=== PATIENT | female | born 1995 | race African-American/Black ===

== ENCOUNTER 2017-01-08 17:03 | Inpatient (IN) ==
[2017-01-08] MEDS ORDERED: ONDANSETRON 4 MG/2 ML VIAL IV PRN (17:31)
[2017-01-08] MEDS ORDERED: BUTORPHANOL 2 MG/ML VIAL IV PRN (17:31)
[2017-01-08] MEDS ORDERED: MEPERIDINE 50 MG/1 ML VIAL IV PRN (17:31)
[2017-01-08] MEDS: LACTATED RINGERS 1,000 ML IV SCH ×3 (17:33→21:11)
[2017-01-08 18:00] LABS: Basophils % 0.2 % (0.0-0.8); Eosinophils # 0.1 10*3/uL (0.0-0.87); Eosinophils % 0.9 % (0.00-10.9); Hematocrit 30.6 VOL% (35.7-47.0); Hemoglobin 10.4 GM/DL (12.0-16.0); Immature Granulocytes % 1.1 %; Immature Granulocytes Absolute 0.13 #; Lymphocytes % 16.6 % (21.3-54.2); Mean Corpuscular Hemoglobin 28 PG (27-34); Mean Corpuscular Volume 82.7 FL (87-102); Mean Platelet Volume 11.3 FL (9.6-12.0); Monocytes # 1.3 10*3/uL (0.11-0.8); Monocytes % 10.7 % (1.7-12.7); NRBC # 0.02 10*3/uL; Neutrophils # 8.3 10*3/uL (1.4-7.4); Neutrophils % 70.5 % (38.7-73.9); Platelet Count 282 T/CUMM (130-400); White Blood Count 11.8 T/CUMM (4-12)
[2017-01-08] MEDS ORDERED: OXYTOCIN/LR 20 UNIT/1,000 ML BAG IV SCH (18:00)
[2017-01-08] MEDS ORDERED: CITRIC ACID/SODIUM CITRATE 30 ML UDCUP PO ONE (19:55)
[2017-01-08] MEDS ORDERED: ePHEDrine 50 MG/ML AMP IV PRN (19:55)
[2017-01-08] MEDS ORDERED: FAMOTIDINE 20 MG/2 ML VIAL IV ONE (19:55)
[2017-01-08] MEDS ORDERED: fentaNYL 2 MCG/ROPIV 0.2% EPID 150 ML EPIDURAL SCH (19:56)
[2017-01-08 23:03] LABS: Apearance,Urine CLEAR (Clear); Bilirubin,Urine Negative (Negative); Blood, Urine Negative (Negative); Glucose,Urine (UA) Negative (Negative); Ketones,Urine 5 mg/dL (Negative); Mucus,Urine Occasional /LPF (Occasional); Nitrite,Urine Negative (Negative); Protein,Urine Negative; RBC,Urine <1 /HPF (0-4); Squamous Epithelial Cell,Urine Occasional /HPF (0-10); Urine Color Straw (Yellow); Urine Specific Gravity 1.006 (1.001-1.035); Urine Urobilinogen < 2.0 EU/DL (0.2-1.0); WBC,Urine <1 /HPF (0-6)
--- NOTE | 2017-01-09 00:33 | OB/GYN History & Physical ---
History of Present Illness Chief complaint: Sent from clinic for induction- IUGR with Growth Percentile @ 5 % per [facility] History of present illness: Ms. Elias is a 21 year old female who is a with an EDC of 01/25/17 per LMP with EGA @ 37.4 wks. Records are available, current, and up to date. Patient f/u at [facility] with Dr. Sawyer and was informed of 02/17/17 with a 16 day growth lag at growth percentile of 5%. Dr. Sawyer recommended patient be delivered today. Patient was then seen at office with risks of induction discussed to include hyperstimulation, non reassuring FHTs, increased risk of multiple day induction, increased risk of delivery, induction failure, risk of abruption, demise, hysterectomy- verbalized understanding. During the course of her , patient has had symmetrical IUGR, chlamydia positive and treated with antibiotic therapy. Labs: Blood type O positive; antibody screen negative; Rubella immune; VDRL non reactive; GC positive 06/04/16 with negative test of cure noted on 12/26/16, Chlamydia 06/04/16 positive; Chlamydia negative 12/26/16; Vitamin D 13.6; UDS negative, Diabetes Screen 99; GBS negative Home Medications Medication Instructions Recorded Confirmed Type No Known Home Medications [No 01/08/17 01/08/17 History Known Home Medications] Allergies Allergy/AdvReac Type Severity Reaction Status Date / Time No Known Allergies Allergy Verified 02/02/15 00:26 12 point system: reviewed and no additional remarkable complaints except as stated Medical,Surgical,& Family Hx - Medical History Musculoskeletal: No history of: Amputation Hematology: History of: Anemia Reproductive: No history of: Ectopic , Complication - Surgical History Surgical History: noncontributory Cardiac Surgeries: Patient Denies: Cardiac Catheterization Abdominal Surgeries: Patient denies: Abdominal Surgery Reproductive Surgeries: Patient denies;: Section - Family History Family History: Reports;: Family Diabetes (GM), Family Heart Disease, Family Hypertension (MOM GM), Family Psychiatric Problems (GM-ANXIETY DEPRESSION), Family Stroke Denies;: Family Anesthesia Reaction, Family Cancer - Social History Smoking Status: Never smoker Frequency of Alcohol Use: None Type of Drug Use: None Exam ENCEPHALOGRAPHER - Constitutional Vitals: Vital Signs Temp Pulse Resp BP Pulse Ox 01/09/17 00:00 97.4 F L 78 18 100/59 100 01/08/17 20:00 97.6 F 109 H 20 129/65 99 General appearance: no acute distress - Antepartum / Post Antepartum Exam Cervix - Dilatation: 5 cm Effacement: 70% Station: 0 station Rupture: Intact Presentation: VTX Heart Rate: 120s with spontaneous variability Heeia: Every 2-3 min/ 60-70 sec/ mod Breast: bilateral: normal Vagina: Present: normal moisture Uterus exam: Present: enlarged (gravid, soft between contractions, EFW 4.5-5 pounds) Anus/Rectum: Present: normal perianal skin - Head Head exam: Present: normal inspection - Eye Eye exam: Present: EOMI - ENT ENT exam: Present: normal exam, normal external ear exam - Neck Neck exam: Present: normal inspection - Respiratory Respiratory exam: Present: clear to auscultation bilaterally - Cardiovascular Cardiovascular exam: Present: regular rate and rhythm - GI/Abdominal GI/Abdominal exam: Present: normal bowel sounds - Extremities Exam Extremities exam: Present: normal inspection, normal capillary refill, full ROM - Back Exam Back exam: Present: normal inspection - Neurological Exam Neurological exam: Present: alert, oriented X3, normal gait - Psychiatric Psychiatric exam: Present: normal affect, normal mood - Skin Skin exam: Present: normal color, warm, dry Assessment and Plan (1) Symmetric IUGR complicating , antepartum Status: Acute Current Visit: Yes (2) Anemia Status: Resolved Current Visit: No Qualifiers: Anemia type: iron deficiency Results - Labs CBC & BMP: 01/08/17 17:31 Labs: Laboratory Tests 01/08/17 01/08/17 01/08/17 17:31 17:31 21:46 WBC 11.8 RBC 3.70 L Hgb 10.4 L Hct 30.6 L MCV 82.7 L MCH 28 MCHC 34.0 RDW 16.0 Plt Count 282 MPV 11.3 Neut % (Auto) 70.5 Lymph % (Auto) 16.6 L [place] % (Auto) 10.7 Eos % (Auto) 0.9 Baso % (Auto) 0.2 Neut # (Auto) 8.3 H Lymph # (Auto) 2.0 [place] # (Auto) 1.3 H Eos # (Auto) 0.1 Baso # (Auto) 0.0 Immature Gran % 1.1 Nucleated RBC % 0.2 Immature Gran # 0.13 Nucleated RBCs # 0.02 Immature Plt Fraction 0.0 Urine Color Straw Urine Appearance Clear Urine pH 7.0 Ur Specific [place] 1.006 Urine Protein Negative Urine Glucose (UA) Negative Urine Ketones 5 Urine Blood Negative Urine Nitrate Negative Urine Bilirubin Negative Urine Urobilinogen < 2.0 H Urine Leukocytes Negative Urine RBC <1 Urine WBC <1 Ur Squamous Epith Cells Occasional Urine Mucus Occasional Ur Culture Indicated? Not indicated Blood Type O POSITIVE Antibody Screen Negative
[2017-01-09] MEDS ORDERED: LIDOCAINE 1% 50 ML VIAL ONE (03:42)
[2017-01-09] MEDS ORDERED: METHYLERGONOVINE 0.2 MG/1 ML AMP ONE (03:42)
[2017-01-09] MEDS ORDERED: miSOPROStol 200 MCG TABLET ONE (03:42)
[2017-01-09] MEDS ORDERED: CARBOPROST TROMETHAMINE 250 MCG/ML AMP IM ONE (04:23)
[2017-01-09 04:36] LABS: Cord Arterial Blood HCO3 20.4 MMOL/L
--- NOTE | 2017-01-09 04:37 | Operative Note ---
Date of procedure: 01/09/17 Pre-op diagnosis: IUP at 37.5 weeks gestation, IUGR Post-op diagnosis: other (Normal spontaneous vaginal delivery) Procedure: Patient received in dorsal lithotomy position. Patient was draped and prepped. At 0408, head delivered in MANOJ position under an epidural anesthetic. Anterior then posterior shoulders were delivered easily without difficulty. delivered in usual fashion and secured. There was tone and cry noted. Mouth and nose bulb suctioned. Cord doubly clamped and cut per patient's mother. ABGs and cord blood obtained. given nursery nurse. At 0 425, spontaneous delivery of placenta via Laurita position, with 3 vessel cord noted, normal cord insertion, with multiple grainy calcifications, small cord noted. Hemostasis maintained with fundal massage and Pitocin 20 units in 1000 cc of lactated Ringer's. Perineum inspected with first-degree vaginal laceration noted and repaired with 2-0 Vicryl under an epidural anesthetic. Female with Apgars 9 and 9 weighing 5 pounds and 4 ounces at 2380 grams. Mother and baby female are stable. Mother desires to bottle feed. Anesthesia: epidural Surgeon / Physician: Mary Trujillo Estimated blood loss: other (150 cc) Specimens: other (Sentence to pathology secondary to IUGR) Condition: stable Disposition: floor Results - Labs CBC & BMP: 01/08/17 17:31 Discharge Plan - Discharge Medications No Action No Known Home Medications [No Known Home Medications] - Follow Up or Referral - Forms/Instructions
[2017-01-09 04:38] LABS: Cord Venous Blood HCO3 20.7 MMOL/L; Cord Venous Blood PCO2 34.3 MMHG; Cord Venous Blood PO2 37.4 MMHG
[2017-01-09] MEDS ORDERED: oxyCODONE/ACETAMINOPHEN 5-325 MG TABLET PO PRN (04:39)
[2017-01-09] MEDS ORDERED: MEASLES/MUMPS/RUBELLA VACCINE 0.5 ML VIAL SUBCUT ONE (04:39)
[2017-01-09] MEDS ORDERED: OXYTOCIN/LR 20 UNIT/1,000 ML BAG IV ONE (04:39)
[2017-01-09] MEDS ORDERED: RHO(D) IMMUNE GLOBULIN 300 MCG SYRINGE IM ONE (04:39)
[2017-01-09] MEDS ORDERED: BENZOCAINE 20%/MENTHOL 0.5% SPRAY 56 GM CAN TOP PRN (04:39)
[2017-01-09] MEDS ORDERED: ONDANSETRON 4 MG/2 ML VIAL IV PRN (04:39)
[2017-01-09] MEDS ORDERED: BISACODYL 10 MG SUPP RECTAL PRN (04:39)
[2017-01-09] MEDS ORDERED: LANOLIN 50% CREAM 0.3 OZ TUBE TOP PRN (04:39)
[2017-01-09] MEDS ORDERED: HYDROCORTISONE 2.5% RECTAL CREAM 30 GM TUBE TOP PRN (04:39)
[2017-01-09] MEDS ORDERED: DIPH/TET/ACEL PERT BOOSTER VACCINE 0.5 ML VIAL IM ONE (04:39)
[2017-01-09] MEDS ORDERED: IBUPROFEN 800 MG TABLET PO PRN (04:39)
[2017-01-09] MEDS ORDERED: ACETAMINOPHEN 325 MG TABLET PO PRN (04:39)
[2017-01-09] MEDS ORDERED: WITCH HAZEL PADS 100/JAR TOP PRN (04:39)
[2017-01-09] MEDS: FERROUS SULFATE 325 MG TABLET PO SCH ×2 (08:42→22:46)
[2017-01-09] MEDS: oxyCODONE/ACETAMINOPHEN 5-325 MG TABLET PO PRN (08:42)
--- NOTE | 2017-01-09 09:05 | Anesthesia Post-Op ---
Anesthesia Post OP - Post Ansesthetic Evaluation Patient seen in post op: Yes Resp: within normal limits CV: within normal limits Mental: within normal limits Temp: within normal limits [id number]: within normal limits Nausea and Vomiting: within normal limits Pain: within normal limits
[2017-01-09] MEDS: DOCUSATE SODIUM 100 MG CAPSULE PO SCH ×2 (11:09→22:46)
[2017-01-09] MEDS: MAGNESIUM HYDROXIDE SUSP 30 ML UDCUP PO SCH (22:46)
[2017-01-10] MEDS: oxyCODONE/ACETAMINOPHEN 5-325 MG TABLET PO PRN (03:14)
[2017-01-10 04:58] LABS: Basophils % 0.1 % (0.0-0.8); Eosinophils # 0.2 10*3/uL (0.0-0.87); Eosinophils % 1.5 % (0.00-10.9); Hematocrit 28.4 VOL% (35.7-47.0); Hemoglobin 9.5 GM/DL (12.0-16.0); Immature Granulocytes % 0.8 %; Lymphocytes % 15.5 % (21.3-54.2); Mean Corpuscular HGB Conc 33.5 GM/DL (32-36); Mean Corpuscular Hemoglobin 28 PG (27-34); Mean Platelet Volume 11.3 FL (9.6-12.0); Monocytes # 1.2 10*3/uL (0.11-0.8); Monocytes % 9.4 % (1.7-12.7); Neutrophils # 9.2 10*3/uL (1.4-7.4); Neutrophils % 72.7 % (38.7-73.9); Platelet Count 248 T/CUMM (130-400); Red Blood Count 3.42 MC/CUMM (3.8-5.5); White Blood Count 12.7 T/CUMM (4-12)
[2017-01-10] MEDS: FERROUS SULFATE 325 MG TABLET PO SCH ×2 (09:04→22:08)
[2017-01-10] MEDS: MAGNESIUM HYDROXIDE SUSP 30 ML UDCUP PO SCH ×2 (09:04→22:10)
[2017-01-10] MEDS: DOCUSATE SODIUM 100 MG CAPSULE PO SCH ×2 (09:05→22:08)
--- NOTE | 2017-01-10 10:24 | Discharge Summary ---
Hospital Course - Hospital Course Hospital Course: Patient is a 1 now para 2 that presented for induction of labor secondary to intrauterine growth restriction as diagnosed and recommended by Dr. Rodriguez for maternal medicine. She was induced with Pitocin to proceed to deliver a female with Apgars 9 and 9 when 5 lbs. 4 oz. she experienced a first-degree vaginal laceration was repaired. She is presently breast-feeding without difficulty. She is stable. And she will be discharged home tomorrow. Diagnosis - Discharge Diagnosis (1) Symmetric IUGR complicating , antepartum Status: Acute (2) Anemia Status: Resolved (3) Normal spontaneous vaginal delivery Status: Resolved (4) Anemia Status: Acute Specialty Discharge - Follow Up or Referrals Follow up with: Joseluis Mcghee DO [Physician] - 01/22/17 9:40 am Discharge Plan - Discharge Data Disposition: Disch To Home/Self Care Condition at Discharge: Stable Discharge Diet: advance to your usual diet Activity: resume usual activities as tolerated Hygiene: may shower Weight Bearing at Discharge: full weight bearing Driving: not for (Two-week) Contact your physician if you experience:: fever over 101, Difficulty voiding, Redness or swelling, Nausea/Vomiting, Shortness of breath, Bleeding, pain uncontrolled by pain medications - Discharge Medications New Ibuprofen Tab [Motrin Tab] 800 mg PO Q8H PRN #90 tablet PRN Reason: Pain Moderate (4-7) Ferrous Sulfate Tab [Feosol Original Tab] 325 mg PO BID #90 tablet - Follow Up or Referral Follow Up: Joseluis Mcghee DO [Physician] - 01/22/17 9:40 am - Forms/Instructions Exam - Constitutional Vitals: Period Temp Pulse Resp BP Sys/Tristan Pulse Ox Last 24 Hr 96.3 F-98.1 F 73-100 17-20 108-130/64-85 97-100 General appearance: no acute distress - Head Head exam: Present: normal inspection, normocephalic - Eye Pupils: Present: normal accommodation - ENT ENT exam: Present: normal exam, normal external ear exam - Neck Neck exam: Present: normal inspection - Respiratory Respiratory exam: Present: clear to auscultation bilaterally - Cardiovascular Cardiovascular exam: Present: regular rate and rhythm - GI/Abdominal GI/Abdominal exam: Present: normal bowel sounds (Uterus firm, midline, 2 fingerbreadths below the umbilicus) - Extremities Exam Extremities exam: Present: normal inspection, normal capillary refill, full ROM - Back Exam Back exam: Present: normal inspection - Neurological Exam Neurological exam: Present: alert, oriented X3, normal gait - Psychiatric Psychiatric exam: Present: normal affect, normal mood - Skin Skin exam: Present: normal color, warm, dry Discharge Results Procedures and tests throughout hospitalization: Laboratory Tests 01/08/17 01/08/17 01/08/17 17:31 17:31 21:46 WBC 11.8 RBC 3.70 L Hgb 10.4 L Hct 30.6 L MCV 82.7 L MCH 28 MCHC 34.0 RDW 16.0 Plt Count 282 MPV 11.3 Neut % (Auto) 70.5 Lymph % (Auto) 16.6 L [place] % (Auto) 10.7 Eos % (Auto) 0.9 Baso % (Auto) 0.2 Neut # (Auto) 8.3 H Lymph # (Auto) 2.0 [place] # (Auto) 1.3 H Eos # (Auto) 0.1 Baso # (Auto) 0.0 Immature Gran % 1.1 Nucleated RBC % 0.2 Immature Gran # 0.13 Nucleated RBCs # 0.02 Immature Plt Fraction 0.0 Cord ABG pH Cord ABG pCO2 Cord ABG pO2 Cord ABG HCO3 Cord ABG Total CO2 Cord ABG Base Excess Cord VBG pH Cord VBG pCO2 Cord VBG pO2 Cord VBG HCO3 Cord VBG Total CO2 Cord VBG Base Excess Urine Color Straw Urine Appearance Clear Urine pH 7.0 Ur Specific [place] 1.006 Urine Protein Negative Urine Glucose (UA) Negative Urine Ketones 5 Urine Blood Negative Urine Nitrate Negative Urine Bilirubin Negative Urine Urobilinogen < 2.0 H Urine Leukocytes Negative Urine RBC <1 Urine WBC <1 Ur Squamous Epith Cells Occasional Urine Mucus Occasional Ur Culture Indicated? Not indicated Blood Type O POSITIVE Antibody Screen Negative 01/09/17 01/09/17 01/10/17 04:08 04:08 04:22 WBC 12.7 H RBC 3.42 L Hgb 9.5 L Hct 28.4 L MCV 83.0 L MCH 28 MCHC 33.5 RDW 16.0 Plt Count 248 MPV 11.3 Neut % (Auto) 72.7 Lymph % (Auto) 15.5 L [place] % (Auto) 9.4 Eos % (Auto) 1.5 Baso % (Auto) 0.1 Neut # (Auto) 9.2 H Lymph # (Auto) 2.0 [place] # (Auto) 1.2 H Eos # (Auto) 0.2 Baso # (Auto) 0.0 Immature Gran % 0.8 Nucleated RBC % 0.0 Immature Gran # 0.10 Nucleated RBCs # 0.00 Immature Plt Fraction 0.0 Cord ABG pH 7.255 Cord ABG pCO2 55.2 Cord ABG pO2 18.0 Cord ABG HCO3 20.4 Cord ABG Total CO2 22.8 Cord ABG Base Excess -3.4 Cord VBG pH 7.398 Cord VBG pCO2 34.3 Cord VBG pO2 37.4 Cord VBG HCO3 20.7 Cord VBG Total CO2 21.7 Cord VBG Base Excess -3.5 Urine Color Urine Appearance Urine pH Ur Specific [place] Urine Protein Urine Glucose (UA) Urine Ketones Urine Blood Urine Nitrate Urine Bilirubin Urine Urobilinogen Urine Leukocytes Urine RBC Urine WBC Ur Squamous Epith Cells Urine Mucus Ur Culture Indicated? Blood Type Antibody Screen Labs on day of discharge: Labs from last 24 hours 01/10/17 04:22 WBC 12.7 H RBC 3.42 L Hgb 9.5 L Hct 28.4 L MCV 83.0 L MCH 28 MCHC 33.5 RDW 16.0 Plt Count 248 MPV 11.3 Neut % (Auto) 72.7 Lymph % (Auto) 15.5 L [place] % (Auto) 9.4 Eos % (Auto) 1.5 Baso % (Auto) 0.1 Neut # (Auto) 9.2 H Lymph # (Auto) 2.0 [place] # (Auto) 1.2 H Eos # (Auto) 0.2 Baso # (Auto) 0.0 Immature Gran % 0.8 Nucleated RBC % 0.0 Immature Gran # 0.10 Nucleated RBCs # 0.00 Immature Plt Fraction 0.0 DS: Provider Date of admission: 01/08/17 17:31 Primary care physician: . No PCP Attending physician on admission: Joseluis Mcghee DO Consults: 01/08/17 17:31 Consult to Anesthesiology [CONS] Routine Consulting Provider: Reason for Anesthesiology: Epidural Consult Comment: Epidural for pain managment 01/09/17 04:39 Consult to [employer] [CONS] Routine Consult [employer]: Breast Feeding Discharging clinician: ANATOLIY Estes
--- NOTE | 2017-01-10 11:20 | Pathology Report from [facility] ---
[facility] ACCESSION # : [id number] PATIENT NAME : Jodie Elias. ORDERING DR : JOYCE GORE DO CLINICAL HX: IUP @ 37.5 wks gestation, IUGR POST-OP DX: Same SPECIMEN INFO: Placenta GROSS DESCRIPTION: Received fresh labeled with the patients name and consists of a 382 gram placenta measuring 18.2 x 19.8 cm x up to 1.5 cm. There is an area of flattening that measures 11.0 x 3.6 x 0.6 cm. membranes are pink- howard, translucent. The umbilical cord is pericentrally inserted measuring 30.2 cm, focally hypercoiled and contains three vessels. The maternal surface is bluish-pink. The maternal surface has intact cotyledons, is beefy red with scattered calcifications present. Focal peripheral areas of fibrin near the area of flattening. No gross abnormalities on sectioning. Sections submitted: A membranes and cord, B and maternal surfaces. DIAGNOSIS FOR JODIE ELIAS: PLACENTA, 37.5 WEEKS GESTATIONAL AGE, VAGINAL DELIVERY: Mature placenta, 382 gms trimmed weight. Trivascular umbilical cord, 30.2 cm in length. Unremarkable membranes. Subchorionic fibrin. COLLECTED DATE: 01/09/2017 [facility] REPORT DATE: 01/10/2017 ELECTRONICALLY SIGNED BY: Cecy Sanders M.D. 01/10/2017 - 10:52:46 [facility]
[2017-01-11] MEDS: oxyCODONE/ACETAMINOPHEN 5-325 MG TABLET PO PRN (00:22)
[2017-01-11] MEDS: FERROUS SULFATE 325 MG TABLET PO SCH (10:00)
[2017-01-11] MEDS: DOCUSATE SODIUM 100 MG CAPSULE PO SCH (10:00)
[2017-01-11] MEDS: MAGNESIUM HYDROXIDE SUSP 30 ML UDCUP PO SCH (10:02)
[2017-01-11 16:16] VITALS: BP 137/81
--- NOTE | 2017-01-11 17:14 | OB/GYN Progress Note ---
Assessment and Plan (1) Normal spontaneous vaginal delivery Status: Resolved Assessment and plan: 1. 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 s/p ppd#2. Pt. without complaints. no fever or chills. lochia normal. Exam EXCAVATING CONTRACTOR - Constitutional Vitals: Vital Signs Temp Pulse Resp BP Pulse Ox 01/11/17 16:00 97.0 F L 88 20 137/81 100 01/11/17 12:00 97.8 F 88 20 111/61 98 01/11/17 08:00 97.5 F L 83 18 122/78 100 01/11/17 06:00 18 01/11/17 05:00 20 01/11/17 04:00 96.0 F L 76 18 112/71 96 01/11/17 03:00 18 01/11/17 02:00 18 01/11/17 00:00 96.7 F L 81 18 111/75 01/10/17 20:00 97.1 F L 91 H 18 124/84 98 General appearance: no acute distress - Neck Neck exam: Present: normal inspection - Respiratory Respiratory exam: Present: clear to auscultation bilaterally - Cardiovascular Cardiovascular exam: Present: regular rate and rhythm - GI/Abdominal GI/Abdominal exam: Present: normal bowel sounds - Extremities Exam Extremities exam: Present: normal inspection Results - Labs CBC & BMP: 01/10/17 04:22
== END 2017-01-11 19:00 | disposition home or self-care (01) | DRG 560 ==
LOC: N.LDOUT 17:03 → N.LD 17:07 → N.OB 01-09 08:11
PROVIDERS: ADMIT Obstetrics & Gynecology; ATTEND Obstetrics & Gynecology